=== PATIENT | female | born 1995 | race Caucasian/White ===

== ENCOUNTER 2017-01-07 15:11 | Emergency (ER) | payer OTHER ==
[~2017-01-07] VITALS: Ht 157.5 cm; Wt 57.5 kg
[2017-01-07 15:19] VITALS: TEMP 36.9; Ht 157.5 cm; Wt 57.5 kg
[2017-01-07] MEDS ORDERED: SODIUM CHLORIDE 0.9% 1000ML 1,000 ML IV ONE ×2 (16:00)
--- NOTE | 2017-01-07 16:18 | EMERGENCY ROOM VISIT NOTE ---
History First contact with patient: 15:39 Chief Complaint: STROKE SYMPTOMS Stated Complaint: FACE NUMBNESS ON R SIDE, LEFT SIDE BODY [facility] Nursing Triage Summary: Pt stated that she was leaving the library around noon and started to feel numbness/tingling in her right face, right arm and right leg. The pt stated that the numbness last for about 20 min. Pts friends then stated that the pt sounded funny when she was trying to talk. The pt stated that her words would not come out. Pt denies any headache. Pt has never had anything like this happen before. Pt was recently in Located [facility]. Pt denies fever, N/V/D. Assessment of the pt. Pt still has numbness in her right arm. Pt also states that her right face and right arm have less feeling that the left side. History of Present Illness The patient is a 21 year old female who presents to the Emergency Room with complaints of numbness and tingling on the right side of her body that started at approximately 2:30 this afternoon. She also reports having a difficulty speaking and possibly slurred speech. Her symptoms lasted for a few minutes. They're now improving. She does still have some residual numbness and tingling on her right cheek. She denies any weakness at any time. No confusion. She denies any headache or visual disturbances. She denies any pain in her chest or shortness of breath. The patient does admit to excessive alcohol use over the last few days, and she thinks that she may be dehydrated. She denies any history of migraines. Review of Systems 10 system review performed and negative unless noted in HPI or below Past Medical/Surgical History Asthma Social History Smoking Status: Never Smoker Alcohol Use: occasionally Marital Status: single Occupation Status: [employer] student Current/Historical Medications Scheduled Control Pills ( Control Pills), 1 TAB PO DAILY Mometasone Furoate-Formoterol (Dulera 100/5 Mcg), 2 PUFFS INH BID Sertraline (Zoloft), 25 MG PO QAM Physical Exam Vital Signs Date Time Temp Pulse Resp B/P (MAP) Pulse Ox O2 Delivery O2 Flow Rate FiO2 01/07/17 17:05 62 18 116/68 98 Room Air 01/07/17 15:55 74 01/07/17 15:19 36.9 70 16 139/81 100 Room Air Physical Exam VITALS: Vitals are noted on the nurse's note and reviewed by myself. Vital signs stable. GENERAL: 21-year-old female, in no acute distress, nondiaphoretic, well- developed well-nourished. SKIN: The skin was without rashes, erythema, edema, or bruising. HEAD: Normocephalic atraumatic. EYES: Pupils equal round and reactive to light and accommodation. Conjunctivae without injection, sclerae without icterus. Extraocular movements intact. MOUTH: Mucous membranes dry. Tonsils are not enlarged. Pharynx without erythema or exudate. Uvula midline. Airway patent. Tongue does not deviate. NECK: Supple without nuchal rigidity. No JVD. HEART: Regular rate and rhythm without murmurs gallops or rubs. LUNGS: Clear to auscultation bilaterally without wheezes, rales or rhonchi. No accessory muscle use. ABDOMEN: Positive bowel sounds x 4.Soft, nontender, without organomegaly. No guarding or rebound tenderness. MUSCULOSKELETAL: No muscle atrophy, erythema, or edema noted. Full range of motion in all extremities. No tenderness to palpation. Normal gait. Strength 5/5 throughout. NEURO: Patient was alert and oriented to person place and time. Cranial nerves grossly intact. Cerebellar function intact. Negative Romberg.. Normal sensation to touch. No focal neurological deficits. Medical Decision & Procedures Laboratory Results 01/07/17 16:20 Red Blood Count 4.72, Mean Corpuscular Volume 87.3, Mean Corpuscular Hemoglobin 29.0, Mean Corpuscular Hemoglobin Concent 33.3, Mean Platelet Volume 9.1, Neutrophils (%) (Auto) 70.8, Lymphocytes (%) (Auto) 15.3, Monocytes (%) (Auto) 12.2, Eosinophils (%) (Auto) 1.3, Basophils (%) (Auto) 0.3, Neutrophils # (Auto ) 4.79, Lymphocytes # (Auto) 1.04, Monocytes # (Auto) 0.83, Eosinophils # (Auto ) 0.09, Basophils # (Auto) 0.02 01/07/17 16:20 Test 01/07/17 16:15 01/07/17 16:20 Urine Color YELLOW Urine Appearance CLEAR (CLEAR) Urine pH 6.5 (4.5-7.5) Urine Specific [place] 1.010 (1.000-1.030) Urine Protein NEG (NEG) Urine Glucose (UA) NEG (NEG) Urine Ketones NEG (NEG) Urine Occult Blood NEG (NEG) Urine Nitrite NEG (NEG) Urine Bilirubin NEG (NEG) Urine Urobilinogen NEG (NEG) Urine Leukocyte Esterase SMALL (NEG) Urine WBC (Auto) 1-5 /hpf (0-5) Urine RBC (Auto) 0-4 /hpf (0-4) Urine Hyaline Casts (Auto) 0 /lpf (0-5) Urine Epithelial Cells (Auto) 10-20 /lpf (0-5) Urine Bacteria (Auto) NEG (NEG) Urine Test NEG (NEG) White Blood Count 6.78 K/uL (4.8-10.8) Red Blood Count 4.72 M/uL (4.2-5.4) Hemoglobin 13.7 g/dL (12.0-16.0) Hematocrit 41.2 % (37-47) Mean Corpuscular Volume 87.3 fL (80-100) Mean Corpuscular Hemoglobin 29.0 pg (25-34) Mean Corpuscular Hemoglobin Concent 33.3 g/dl (32-36) Platelet Count 211 K/uL (130-400) Mean Platelet Volume 9.1 fL (7.4-10.4) Neutrophils (%) (Auto) 70.8 % Lymphocytes (%) (Auto) 15.3 % Monocytes (%) (Auto) 12.2 % Eosinophils (%) (Auto) 1.3 % Basophils (%) (Auto) 0.3 % Neutrophils # (Auto) 4.79 K/uL (1.4-6.5) Lymphocytes # (Auto) 1.04 K/uL (1.2-3.4) Monocytes # (Auto) 0.83 K/uL (0.11-0.59) Eosinophils # (Auto) 0.09 K/uL (0-0.5) Basophils # (Auto) 0.02 K/uL (0-0.2) RDW Standard Deviation 40.9 fL (36.4-46.3) RDW Coefficient of Variation 12.6 % (11.5-14.5) Immature Granulocyte % (Auto) 0.1 % Immature Granulocyte # (Auto) 0.01 K/uL (0.00-0.02) Anion Gap 5.0 mmol/L (3-11) Est Creatinine Clear Calc Drug Dose 92.2 ml/min Estimated GFR () 128.8 Estimated GFR (Non- 111.1 BUN/Creatinine Ratio 16.2 (10-20) Calcium Level 9.4 mg/dl (8.5-10.1) Magnesium Level 2.2 mg/dl (1.8-2.4) Total Bilirubin 0.5 mg/dl (0.2-1) Aspartate Amino Transf (AST/SGOT) 23 U/L (15-37) Alanine Aminotransferase (ALT/SGPT) 25 U/L (12-78) Alkaline Phosphatase 68 U/L (45-117) Total Protein 7.9 gm/dl (6.4-8.2) Albumin 4.2 gm/dl (3.4-5.0) Globulin 3.7 gm/dl (2.5-4.0) Albumin/Globulin Ratio 1.1 (0.9-2) Medications Administered Medications (Trade) Dose Ordered Sig/Kishor Route Start Time Stop Time Status Last Admin Dose Admin Sodium Chloride 1,000 ml @ 999 mls/hr Q1H1M ONCE IV 01/07/17 16:00 01/07/17 17:00 DC 01/07/17 16:00 999 MLS/HR Sodium Chloride 1,000 ml @ 999 mls/hr Q1H1M ONCE IV 01/07/17 16:00 01/07/17 17:00 DC 01/07/17 17:01 999 MLS/HR ECG Indication: other Rate (beats per minute): 61 Rhythm: sinus with SA ED Course Patient was seen and examined Vital signs including blood pressure were reviewed medications list was verified with patient Labs were obtained, and a saline lock was established An EKG was performed and the patient was put on a monitor She was hydrated with 2 L of normal saline Upon reevaluation, the patient was feeling much better. Her symptoms have completely resolved. I reviewed discharge instructions the patient. They voiced understanding and had no further questions. Medical Decision Differential diagnosis: Atypical migraine, TIA, CVA, dehydration, anxiety attack , alcohol withdrawal This patient is a 21-year-old female that presented to the emergency department with complaints of numbness and tingling on the right side of her body that lasted for a few minutes. Given her age, I did not have a high suspicion of CVA. She does not smoke. Her neurologic exam was intact. I believe her symptoms are likely related to dehydration and anxiety possibly exacerbated by excessive alcohol use over the last few days. The patient was hydrated with IV fluids, and had resolution of her symptoms. She was advised to return to the emergency department with any returning or worsening symptoms. Impression Primary Impression: Dehydration Additional Impression: Neurological symptoms Departure Information Dispostion Home / Self-Care Condition GOOD Referrals No Doctor, Assigned (PCP) Patient Instructions My [facility] Additional Instructions You were evaluated in the emergency department today for numbness and tingling on the right side of your body. This is likely due to dehydration. Please drink plenty of fluids over the next several days. Please follow-up with your primary care physician or [place] [facility] services within one week for a recheck. Please return to the emergency department for any returning symptoms or medical concerns. Problem Qualifiers
[2017-01-07 16:31] LABS: BASO % 0.3 %; BASO ABS # 0.02 K/uL (0-0.2); COMPLETE YES; EOS % 1.3 %; HEMATOCRIT 41.2 % (37-47); IG% 0.1 %; LYMPH % 15.3 %; LYMPH ABS # 1.04 K/uL (1.2-3.4); MEAN CELL VOLUME 87.3 fL (80-100); MEAN CORPUSCULAR HGB CONC 33.3 g/dl (32-36); MEAN PLATELET VOLUME 9.1 fL (7.4-10.4); MONO % 12.2 %; NEUT % 70.8 %; PLATELET COUNT 211 K/uL (130-400); RED BLOOD COUNT 4.72 M/uL (4.2-5.4); WHITE BLOOD COUNT 6.78 K/uL (4.8-10.8)
[2017-01-07 16:35] LABS: MANUAL MICROSCOPIC REQUIRED? NO; REVIEW REQ? YES; URINE APPEARANCE CLEAR (CLEAR); URINE BILIRUBIN NEG (NEG); URINE COLOR YELLOW; URINE NITRITE NEG (NEG); URINE PH 6.5 (4.5-7.5); UROBILINOGEN NEG (NEG)
[2017-01-07 16:50] LABS: BUN/CREATININE RATIO 16.2 (10-20); CALCIUM 9.4 mg/dl (8.5-10.1); CREATININE 0.77 mg/dl (0.60-1.20); MAGNESIUM 2.2 mg/dl (1.8-2.4); POTASSIUM 4.4 mmol/L (3.5-5.1)
[2017-01-07 16:53] LABS: ALB/GLOB RATIO 1.1 (0.9-2)
[2017-01-07 17:52] VITALS: BP 122/85; PULSE 65; O2SAT 98
[2017-01-29] MEDS ORDERED: SERT25TA PO (16:05)
[2017-01-29] MEDS ORDERED: MOME100A INH (16:05)
[2017-01-29] MEDS ORDERED: BCPILLS PO (16:05)
== END 2017-01-07 17:56 | disposition home or self-care (01) ==
LOC: C.EDB 15:13 → C.EDC 17:56
DX: E86.0 Dehydration (principal); R20.0 Anesthesia of skin; R20.2 Paresthesia of skin; J45.909 Unspecified asthma, uncomplicated; Z79.3 Long term (current) use of hormonal contraceptives

== ENCOUNTER 2017-01-29 16:10 | Emergency (ER) | payer OTHER ==
[~2017-01-29] VITALS: Ht 157.5 cm; Wt 58.2 kg
[~2017-01-29 16:10] MED LIST: BCPILLS PO; MOME100A INH; SERT25TA PO
[2017-01-29 16:14] VITALS: TEMP 36.6; Ht 157.5 cm; Wt 58.2 kg
[2017-01-29] MEDS ORDERED: IBUPROFEN 600 MG TAB PO STA (16:46)
[2017-01-29] MEDS ORDERED: HYDROCODONE/ACETAMOPHEN 5/325MG TAB PO STA (17:39)
--- NOTE | 2017-01-29 17:46 | DIAGNOSTIC IMAGING REPORT ---
LEFT FINGER(S) MIN 2 VIEWS ROUTINE CLINICAL HISTORY: 21 years-old Female presenting with left 5th finger swelling, suspect dislocation vs fx. TECHNIQUE: Frontal, oblique, and lateral views of the left fifth finger were obtained. COMPARISON: None. FINDINGS: Dislocation of the proximal interphalangeal joint of the left fifth finger with volar luxation of the middle and distal phalanges relative to the proximal phalanx. No fracture is evident. No radiopaque foreign body. Minimal soft tissue swelling. IMPRESSION: Dislocation at the interphalangeal joint of the left fifth finger without evidence of fracture. Electronically signed by: Ar Mercado M.D. 01/29/2017 5:44 PM Dictated Date/Time: 01/29/2017 5:43 PM
--- NOTE | 2017-01-29 17:51 | EMERGENCY ROOM VISIT NOTE ---
ED Visit Note First contact with patient: 16:41 CHIEF COMPLAINT: Left finger injury HISTORY OF PRESENT ILLNESS: This 21-year-old female presents to the emergency department with complaint of left finger pain and swelling after an injury yesterday at 6 PM. She states that she was playing football and seated injury to her left fifth finger while catching a football. The finger has been swollen , painful, and bruised since the injury and she has been unable to move it without severe pain. She went to an urgent care today, where they did x-rays and said there was no fracture but they were uncomfortable with further management of the finger and sent her to the emergency department. She has been unable to move it at the PIP joint since the injury and there is moderate and constant pain. She denies any other injuries. She is left-hand dominant. REVIEW OF SYSTEMS: Head: No headache, injury or neck pain. Neck: No pain, stiffness, or swelling. Cardiac: No chest pain, diaphoresis, dyspnea on exertion, orthopnea, pedal edema, or palpitations. Skin: No rash, new lesions , or masses. General: No fever or chills, fatigue, loss of appetite, or significant recent weight gain or loss. PMH: The patient is healthy; there is no significant medical or surgical history. SOCIAL HISTORY: Patient is a [employer] student. She denies tobacco, alcohol, recreational drug use. PHYSICAL EXAM: Vital Signs: Reviewed Nurse's notes.There is an obvious deformity at the PIP joint of the finger with dorsal dislocation of the middle phalanx. The distal dislocated portion of the finger is pale but is sensate. Capillary refill is normal. IMAGING: LEFT FINGER(S) MIN 2 VIEWS ROUTINE CLINICAL HISTORY: 21 years-old Female presenting with left 5th finger swelling, suspect dislocation vs fx. TECHNIQUE: Frontal, oblique, and lateral views of the left fifth finger were obtained. COMPARISON: None. FINDINGS: Dislocation of the proximal interphalangeal joint of the left fifth finger with volar luxation of the middle and distal phalanges relative to the proximal phalanx. No fracture is evident. No radiopaque foreign body. Minimal soft tissue swelling. IMPRESSION: Dislocation at the interphalangeal joint of the left fifth finger without evidence of fracture. EMERGENCY DEPARTMENT COURSE: I examined the patient. Differential diagnosis includes contusion, sprain/strain, fracture, dislocation finger. An X-ray of the finger shows a complete dislocation at the PIP joint. No fractures are seen. The joint was reduced by applying a steady and rapid axial distraction of the dislocated portion at the PIP joint while the proximal portion was stabilized with the other hand. Following this motion of the joint was normal and full and the patient could move it normally also. Post-reduction X-ray shows successful reduction of the dislocation, with good alignment of the finger. The patient was given ibuprofen and [place] for pain, with good improvement in her pain. The patient was placed into a metal finger splint for immobilization and was encouraged to follow up with orthopedic hand specialist this week. Take home pack of [place] provided for pain control. Patient was discharged home in stable condition and ambulatory. Current/Historical Medications Scheduled Control Pills ( Control Pills), 1 TAB PO DAILY Mometasone Furoate-Formoterol (Dulera 100/5 Mcg), 2 PUFFS INH BID Sertraline (Zoloft), 25 MG PO QAM Allergies Coded Allergies: No Known Allergies (Unverified , 01/07/17) Vital Signs Date Time Temp Pulse Resp B/P (MAP) Pulse Ox O2 Delivery O2 Flow Rate FiO2 01/29/17 18:32 52 18 122/73 99 01/29/17 16:14 36.6 89 18 124/80 98 Room Air Medications Administered Medications (Trade) Dose Ordered Sig/Kishor Route Start Time Stop Time Status Last Admin Dose Admin Ibuprofen (Motrin Tab) 600 mg NOW STAT PO 01/29/17 16:46 01/29/17 16:47 DC 01/29/17 16:59 600 MG Acetaminophen/ Hydrocodone Bitart ([place] 5/325 Tab) 1 tab NOW STAT PO 01/29/17 17:39 01/29/17 17:40 DC 01/29/17 17:48 1 TAB Departure Information Impression Primary Impression: Dislocation of finger, interphalangeal joint, left, closed Dispostion Home / Self-Care Condition GOOD Referrals No Doctor, Assigned (PCP) Tarun Osman M.D. Patient Instructions ED Dislocation Finger Redu, My [facility] Additional Instructions Keep the finger in the splint for about 10 days to allow for healing. Ice and elevation for the next 24 hours. Ibuprofen 600 mg every 6 hours for pain. [place] as needed for severe pain. This is a narcotic, do not drive, operate machinery, or drink alcohol while you are taking it. Follow-up with the orthopedic surgeon in the next 5-7 days for reassessment of your finger. Problem Qualifiers Primary Impression: Dislocation of finger, interphalangeal joint, left, closed Encounter type: initial encounter Qualified Codes: S63.279A - Dislocation of unspecified interphalangeal joint of unspecified finger, initial encounter
--- NOTE | 2017-01-29 18:07 | DIAGNOSTIC IMAGING REPORT ---
LEFT FINGER(S) MIN 2 VIEWS ROUTINE CLINICAL HISTORY: 21 years-old Female presenting with left 5th finger, post-reduction film. TECHNIQUE: Frontal, oblique, and lateral views of the left fifth finger were obtained. COMPARISON: Radiograph performed earlier the same day. FINDINGS: There has been interval reduction of the volar dislocation at the proximal interphalangeal joint. No evidence of an avulsion fracture or malalignment. No regional soft tissue swelling. IMPRESSION: Interval reduction of the volar dislocation at the proximal interphalangeal joint of the fifth finger. No fracture. Electronically signed by: Ar Mercado M.D. 01/29/2017 6:05 PM Dictated Date/Time: 01/29/2017 6:04 PM
[2017-01-29] MEDS ORDERED: NORCO 5/325MG HOME PACK PO ONE (18:30)
[2017-01-29 18:32] VITALS: BP 122/73; PULSE 52; O2SAT 99
== END 2017-01-29 18:34 | disposition home or self-care (01) ==
LOC: C.EDB 16:11 → C.EDD 18:34
DX: S63.287A Dislocation of proximal interphalangeal joint of left little finger, initial encounter (principal); X58.XXXA Exposure to other specified factors, initial encounter; Y93.61 Activity, american tackle football; Z79.3 Long term (current) use of hormonal contraceptives

== ENCOUNTER → 2017-09-04 | Outpatient (CLI) | payer OTHER | END | disposition home or self-care (01) | LOC: C.RDSM 18:22 | PROVIDERS: ATTEND Family Medicine | DX: M54.2 Cervicalgia (principal) ==